=== PATIENT | female | born 1995 | race Caucasian/White ===

== ENCOUNTER → 2025-09-27 15:45 | Outpatient (REF) | payer BC, SELFPAY ==
[2025-09-27 17:42] LABS: Hematocrit 34.4 % (37.0-47.0); Hemoglobin 10.5 g/dL (12.0-16.0); Mean Corp Hgb Conc. 30.5 g/dL (33.0-37.0); Mean Corpuscular Volume 62.1 fL (81.0-99.0); Nucleated Red Blood Cells % 0 %; Platelet Count 317 10^3/uL (130-400); Red Cell Dist. Width 16.2 % (11.5-14.5)
[2025-09-27 17:51] LABS: ALT (SGPT) 20 U/L (0-35); AST (SGOT) 23 U/L (14-36); Albumin 5.3 g/dl (3.5-5.0); Alkaline Phosphatase 73 U/L (38-126); Blood Urea Nitrogen 10 mg/dl (7-17); Calcium 9.4 mg/dl (8.4-10.2); Carbon Dioxide 27 mmol/L (22-30); Chloride 103 mmol/L (98-107); Glucose 78 mg/dl (70-99); Iron 83 ug/dl (37-170); Lipase 107 U/L (23-300); Potassium 4.3 mmol/L (3.5-5.1); Sodium 137 mmol/L (135-145); Total Protein 7.8 g/dl (6.3-8.2); eGFR > 60.00
[2025-09-27 17:53] LABS: C-Reactive Protein < 5.00 mg/L (0.0-10.00)
[2025-09-27 18:02] LABS: Total Iron Binding Capacity 278 ug/dl (265-497)
[2025-09-27 18:29] LABS: Ferritin 52.1 ng/ml (6.24-137)
[2025-09-27 18:43] LABS: Vitamin B12 477 pg/ml (239-931)
== END ==
LOC: REG 15:45
PROVIDERS: ATTENDING PHYSICIAN Internal Medicine
DX: R19.7 Diarrhea, unspecified (principal)
CPT/HCPCS: 36415; 80053; 82607; 82728; 82784; 83516; 83540; 83550; 83690; 84439; 84443; 85025; 85652; 86140; 86231

== ENCOUNTER → 2025-10-03 08:28 | Outpatient (REF) | payer BC, SELFPAY ==
[2025-10-05 16:39] LABS: H. pylori Antigen, Fecal Negative (Negative)
== END ==
LOC: REG 08:28
PROVIDERS: ATTENDING PHYSICIAN Internal Medicine
DX: R19.7 Diarrhea, unspecified (principal)
CPT/HCPCS: 36415; 83993; 87045; 87046; 87324; 87328; 87329; 87338; 87427; 87449; 89055

== ENCOUNTER 2025-10-11 06:28 | Day surgery (SDC) | payer BC, SELFPAY | END 2025-10-11 12:45 | disposition home or self-care (01) | LOC: GI 06:28 | PROVIDERS: ATTENDING PHYSICIAN Internal Medicine; FAMILY PHYSICIAN Family Medicine | DX: R10.84 Generalized abdominal pain (principal); R10.13 Epigastric pain; K63.5 Polyp of colon; K29.50 Unspecified chronic gastritis without bleeding; K20.90 Esophagitis, unspecified without bleeding | CPT/HCPCS: 45385; 45380; 43239; 88305; 88342 ==